=== PATIENT | male | born 1980 | race Caucasian/White ===

== ENCOUNTER → 2021-03-12 | Outpatient (CLI) | payer OTHER ==
--- NOTE | 2021-03-12 14:24 | RAD ---
PA and lateral views of the chest. Comparison: None. Indication: Cough Findings: The heart size is normal. No pneumothorax or effusion. No air space or interstitial disease. The bon y structures are intact. Impression: 1. No acute cardiopulmonary process. Electronically signed by: Frank Fuentes MD (03/12/2021 2:22 PM) [facility]
== END ==
LOC: RAD 14:05
PROVIDERS: ATTEND Nurse Practitioner Family
DX: J06.9 Acute upper respiratory infection, unspecified (principal)
CPT/HCPCS: 71046